=== PATIENT | female | born 1955 | race Caucasian/White ===

== ENCOUNTER 2025-09-13 16:06 | Emergency (ER) | payer OTHER, SELFPAY ==
[2025-09-13 16:25] VITALS: BP 147/85
[2025-09-13 16:49] LABS: Hematocrit 40.3 % (37.0-47.0); Hemoglobin 13.3 g/dL (12.0-16.0); Mean Corp Hgb Conc. 33.0 g/dL (33.0-37.0); Mean Corpuscular Volume 88.2 fL (81.0-99.0); Nucleated Red Blood Cells % 0 %; Platelet Count 309 10^3/uL (130-400); Red Cell Dist. Width 13.2 % (11.5-14.5)
[2025-09-13 16:59] LABS: INR 0.97; PT 13.0 Sec (11.4-14.6)
[2025-09-13 17:04] LABS: ALT (SGPT) 29 U/L (0-35); AST (SGOT) 32 U/L (14-36); Albumin 4.8 g/dl (3.5-5.0); Alkaline Phosphatase 84 U/L (38-126); Blood Urea Nitrogen 15 mg/dl (7-17); Calcium 9.5 mg/dl (8.4-10.2); Carbon Dioxide 22 mmol/L (22-30); Chloride 106 mmol/L (98-107); Glucose 93 mg/dl (70-99); Potassium 4.2 mmol/L (3.5-5.1); Sodium 136 mmol/L (135-145); Total Protein 8.0 g/dl (6.3-8.2); eGFR > 60.00
[2025-09-13 17:14] LABS: Troponin I < 0.012 ng/ml
[2025-09-13 21:22] VITALS: BP 143/117
--- NOTE | 2025-09-13 21:59 | ED.GENMED ---
History of Present Illness
General
Chief Complaint: Chest Pain
Source: patient
Exam Limitations: none
Time Seen by Provider: 09/13/25 21:58
Nursing documentation reviewed up to this point in time: agreed with
History of Present Illness
History of Present Illness:
70-year-old female with history of HTN presents for 'my chest hurts, I feel short of breath, my heart is racing and going thump, thump, thump.' Symptoms started 3 days ago and states she thinks they are related to family stress she had over the
weekend.
Under care of Pain Management for sciatica and facial and neck pain post shingles.
She called her fire prevention forester at [place] and is seeing her Cardiology MEDICAL NUMERICAL CONTROL OPERATOR in one week.
She states during a previous visit to a doctor she was asked 'did anyone ever tell you you have a clot in your lung?' She states this was an incidental finding and was told it was an 'old clot' and this is her main concern tonight, that her symptoms
are cause by a PE
She also states she thinks she was told at one time she has Mitral valve prolapse and asks could that be causing her symptoms?
Past History
Past History
ED Past Medical History: Fibromyalgia, HTN and Other (chronic pain, followed by pain management takes Percocet 5 mg BID prn, took one before coming.)
ED Past Surgical History: Cholecystectomy and Tonsilectomy
Social History
Tobacco: Smoker
Alcohol: None
Personal: Single
Living: alone
Employment: Retired
Review of Systems
Review of Systems
Allergies reviewed?: Yes
All Other Systems: ROS reviewed and negative except as documented in HPI and ROS
Phy Exam
Physical Exam
Physical Exam:
GENERAL: No acute distress. A&Ox3.
CONSTITUTIONAL: Afebrile.
EYES: clear, conjunctivae normal
ENMT: moist mucus membranes, Pharynx nl
RESPIRATORY: Regular respirations, nonlabored, lungs clear.
CARDIOVASCULAR: Regular rate and rhythm, no murmurs, no rubs.
GI: Soft, nontender, normal BS
MUSCULOSKELETAL: Moves with ease. Well perfused.
SKIN: Warm, dry, pink
PSYCH: Anxious mood and affect. Well kept, interactive and appropriate
NEUROLOGIC: Awake, alert and oriented. No focal neurological deficits
Scores
Heart Score for Chest Pain Patients
STEMI patient?: Not applicable
Course
Orders/Labs/Results
Orders:
Orders
09/13/25 16:07
EKG [Electrocardiogram (*1)] Urgent
Reason for Study: Chest Pain
09/13/25 16:08
EKG- Treatment ONCE
09/13/25 16:36
Complete Blood Count/With Diff Urgent
Comprehensive Metabolic Panel Urgent
Prothrombin Time Urgent
TSH Reflex To Free T4 Urgent
Troponin I Urgent
09/13/25 20:05
EKG [Electrocardiogram (*1)] Urgent
Reason for Study: Chest Pain
EKG- Treatment ONCE
09/13/25 22:42
D-Dimer Urgent
09/13/25 16:36
09/13/25 16:36
Vital Signs
Initial and Last Documented VS:
Initial Vital Signs
Temp Pulse Resp BP Pulse Ox
97.7 F 86 17 147/85 95
09/13/25 16:25 09/13/25 16:25 09/13/25 16:25 09/13/25 16:25 09/13/25 16:25
Last Documented Vital Signs
Temp Pulse Resp BP Pulse Ox
97.7 F 86 17 147/85 95
09/13/25 16:25 1216 16:25 09/13/25 16:25 09/13/25 16:25 09/13/25 22:00
MDM/Problems Addressed
Differential Diagnosis Includes:
Stress/anxiety, MVP, PE, fibromyalgia, thyroid disorder
MDM/Problems Addressed:
70-year-old female with history of HTN presents for 'my chest hurts, I feel short of breath, my heart is racing and going thump, thump, thump.' Symptoms started 3 days ago and states she thinks they are related to family stress she had over the
weekend.
Under care of Pain Management for sciatica and facial and neck pain post shingles.
She called her fire prevention forester at [place] and is seeing her Cardiology MEDICAL NUMERICAL CONTROL OPERATOR in one week.
She states during a previous visit to a doctor she was asked 'did anyone ever tell you you have a clot in your lung?' She states this was an incidental finding and was told it was an 'old clot' and this is her main concern tonight, that her symptoms
are cause by a PE
She also states she thinks she was told at one time she has Mitral valve prolapse and asks could that be causing her symptoms?
EKG: NSR
CBC normal
CMP normal
Troponin normal
TSH normal
11:10 PM: D-dimer is normal
Patient is stable for discharge, she has an appointment with her cardiology MEDICAL NUMERICAL CONTROL OPERATOR in 7 days
*Pulse Oximetry
SaO2: 95
Oxygen Mode of Delivery: Room air
Patient hypoxic: no
*EKG
EKG Intrepretation Date: 09/13/25
Interpretation: normal
Heart Rate: 73
Rate: normal
Rhythm: sinus
[place]: normal axis
Interval: normal interval
QRS Pattern: normal QRS
Ischemia: no ischemia
*Critical Care Note
Total Time (30-74mins, 75-104mins- exclusive of procedures): Not Applicable
ED Attending Note
-
Portions of this chart may have been created with voice recognition software.� Occasional wrong word or��sound alike� substitutions may have occurred due to the inherent limitations of voice recognition software.
Discharge Plan
Departure
Patient Disposition: Home (Routine Discharge)
Date of Disposition: 09/13/25
Time of Disposition: 23:14
Patient with high blood pressure during this ER visit?: No
Condition: Fair
Discharge Problem:
Atypical chest pain
Instructions: Chest Pain That Is Not Caused by the Heart (DC)
Prescriptions:
No Action
rabeprazole 20 mg Tablet,Delayed Release (Dr/Ec)
20 mg PO DAILY
lisinopril 10 mg Tablet
10 mg PO DAILY
metoprolol succinate 25 mg Tablet Extended Release 24 Hr
25 mg PO DAILY
escitalopram oxalate 20 mg Tablet
20 mg PO DAILY
Referrals:
[facility] [Other] - Keep scheduled appt
Robert Ross MD [Family Provider, Family Practice]
Activity Restrictions/Additional Instructions:
As we discussed, nothing worrisome in your workup here today, specifically no indication of a blood clot in your lung.
Keep your appointment with your cardiology nurse practitioner next week
Interventions
Interventions:
*General Assessment Last Done: 09/13/25 16:27
*Neglect/Abuse Screening Last Done: 09/13/25 16:27
*ED COVID-19 Vaccine History Last Done: 09/13/25 16:27
*ED Influenza Vaccine History Last Done: 09/13/25 16:27
*Risk Screen - Suicide (C-SSRS) Last Done: 09/13/25 16:27
Discharge Date and Time
Print Language: BELARUSIAN
[2025-09-13 22:00] VITALS: BP 155/105
[2025-09-13 23:13] LABS: D-Dimer < 0.27 ug/mlFEU (0.00-0.50)
== END 2025-09-13 23:25 | disposition home or self-care (01) ==
LOC: EMR 16:06
PROVIDERS: Emergency Medicine; EMERGENCY PHYSICIAN Student in an Organized Health Care Education/Training Program; FAMILY PHYSICIAN Family Medicine
DX: R07.89 Other chest pain (principal); I10 Essential (primary) hypertension; M79.7 Fibromyalgia; M54.30 Sciatica, unspecified side; G89.29 Other chronic pain; F17.200 Nicotine dependence, unspecified, uncomplicated; Z63.8 Other specified problems related to primary support group
CPT/HCPCS: 99284; 80053; 84443; 84484; 85025; 85379; 85610; 93005